=== PATIENT | male | born 1965 | race Hispanic/Latino ===

== ENCOUNTER → 2021-09-04 | Day surgery (SDC) | payer BC ==
[~2021-09-04] MED LIST: DEXAMETHASONE SOD PHOS INJ 4 MG/ML SDV ONE; FENTANYL CITRATE/PF 100MCG/2 ML INJ ONE; LIDOCAINE HCL 2% LOCAL INJ 5 ML SDV VIAL INJ ONE; MOBIC7.5 MG PO; MULTIVITAMIN; ONDANSETRON HCL INJ 2MG/ML 2ML 2 MG/ML VIAL ONE; POVIDONE IODINE 0.05% 0.05 % ML PO ONE; PROPOFOL IV EMULSION 10 MG/ML 20 ML VIAL ONE; SEVOFLURANE INHAL SOLN 250 ML PEN BTL ONE; SODIUM CHLORIDE 0.9% 50ML 50 ML ONE; VITAMIN A; VITAMIN B; VITAMIN B12
[2021-09-04 13:40] VITALS: BP 127/84
== END | disposition home or self-care (01) ==
LOC: OR 08:44
PROVIDERS: ATTEND Specialist
DX: S83.232A Complex tear of medial meniscus, current injury, left knee, initial encounter (principal); S83.222A Peripheral tear of medial meniscus, current injury, left knee, initial encounter; M94.262 Chondromalacia, left knee; M23.91 Unspecified internal derangement of right knee; N20.0 Calculus of kidney; X58.XXXA Exposure to other specified factors, initial encounter; Z88.6 Allergy status to analgesic agent; Z88.0 Allergy status to penicillin; Z01.810 Encounter for preprocedural cardiovascular examination; Z01.812 Encounter for preprocedural laboratory examination; Z20.822 Contact with and (suspected) exposure to COVID-19
CPT/HCPCS: 29881; 93005; J0690; J1100; J2001; J2405; J2704; J3010; U0002